=== PATIENT | female | born 1945 | race Caucasian/White ===

== ENCOUNTER 2016-04-24 06:34 | Day surgery (SDC) | payer MEDICARE ==
[~2016-04-24] VITALS: Ht 157.5 cm; Wt 72.4 kg
[2016-04-24] VITALS (9 sets, daily range): BP systolic 127–149; BP diastolic 61–81; PULSE 60–85; RESP 14–19; O2SAT 92–98
[2016-04-24] MEDS: Lactated Ringer's 1,000 ML IV SCH ×4 (05:00→10:45)
[~2016-04-24 06:34] MED LIST: ATRV10T PO; CALC500T53 PO; CHOL10008 PO; CeFAZolin 2 Gm/50 mL D5W IV Premix IV ONE; DOCO1CAP3 PO; LOSA100T29 PO; METO25TA99 PO; VIT1CAPS8 PO; VIT1TABL83 PO
[2016-04-24] MEDS ORDERED: EPHEDrine/NS 5 mg/mL 5 mL Syringe ONE (06:35)
[2016-04-24] MEDS ORDERED: fentaNYL-PF 50 mCg/mL 2 mL Inj ONE (06:35)
[2016-04-24] MEDS ORDERED: HYDROmorphone 2 mg/mL Inj ONE (06:35)
[2016-04-24] MEDS ORDERED: Ondansetron 2 mg/mL 2 mL Inj ONE (06:35)
[2016-04-24] MEDS ORDERED: Propofol 10,000 mCg/mL 20 mL Inj ONE (06:35)
[2016-04-24] MEDS ORDERED: Rocuronium 10 mg/mL 5 mL Inj ONE (06:35)
[2016-04-24] MEDS ORDERED: Dexamethasone 4 mg/mL Inj ONE (06:35)
--- NOTE | 2016-04-24 08:11 | PCM.HPANE ---
Patient Data Surgeon Admitting Provider: Attending Provider:Kim Miller MD Primary Care Physician:Shante Faulkner Other Provider:MaryellenocOlga Anesthesia Reason for Visit GERD Ht/WT & BMI Height (Feet): 5 Height (Inches): 2 Weight (Kilograms): 72.4 Body Mass Index 29.00 Allergies Coded Allergies: amlodipine (Verified Allergy, Severe, 09/19/15) edema hydrochlorothiazide (Verified Adverse Reaction, Severe, 09/19/15) sun sensitivity Past Anesthesia History Anesthesia History: Denies:: Abnormal Airway, Anesthesia Reactions, Difficult Intubation, Fam Anesthesia Reaction, Fam Malignant Hypertherm, Malignant Hyperthermia Diabetes History Hx Diabetes?: No MRSA MRSA: No Medications Hypertension Medication: Yes Home Meds Incl Beta Kimmie: Yes Date Beta Kimmie Taken: Apr 23, 2016 Time Beta Kimmie Taken: 2200 Reported Medications Cholecalciferol (Vitamin D3) (Vitamin D3)1,000 Unit Tab.chew1,000 Unit PO DAILY 04/22/16 Vit C/Vit E/Lutein/Min/[place]-3 (Ocuvite Softgel)1 Each Capsule1 Each PO DAILY 04/22/16 Metoprolol Succinate ER 25 Mg Tab.er.24h25 Mg PO DAILY Ref 0 04/22/16 Losartan Potassium 100 Mg [id number] Mg PO DAILY 04/22/16 Docosahexanoic Acid/Epa (Fish Oil Concentrate Softgel)1 Each Capsule1 Each PO DAILY 04/22/16 Calcium Carbonate 200 Mg Tab.hizc263 Mg PO DAILY 04/22/16 Vit B Comp/C/FA/Iron/Vit E (Vitamin B Complex Tablet)1 Each Tablet1 Each PO DAILY 04/22/16 Atorvastatin (Lipitor)10 Mg Tab10 Mg PO DAILY Ref 0 04/22/16 Discontinued Reported Medications Cholecalciferol (Vitamin D3) (Vitamin D3)1,000 Unit Tab.chew1,000 Unit PO 09/19/15 Spironolactone 25 Mg Atkoba48 Mg PO DAILY #30 TABLET Ref 0 09/19/15 Metoprolol Succinate ER 25 Mg Tab.er.24h25 Mg PO DAILY Ref 0 09/19/15 Losartan Potassium 100 Mg Fjojjk475 Mg PO DAILY 09/19/15 Vitamin B Complex & Vit C No.3 (B Complex with Vitamin C)1 Each Capsule1 Each PO DAILY 09/19/15 Atorvastatin (Lipitor)10 Mg Tab10 Mg PO DAILY Ref 0 09/19/15 History History of ENT Problems?: Yes HEENT History: Positive for:: Dysphagia (occasional ) Denies:: Abnormal Airway Cataracts (forming- not yet surgically corrected) Difficult Intubation Glaucoma Hearing Problem Sinus Problem TMJ Hx of Heart Problems?: Yes Cardiovascular History: Positive for:: Abdominal Aortic Aneurism (enlarged ascending aorta/ mild- cardio note 12/2015) Hypertension Denies:: AICD Chest Pain Congestive Heart Failure Coronary Artery Disease Edema Heart Murmur Irregular Heartbeat Pacemaker Peripheral Vascular Rheumatic Fever Thrombophlebitis Valvular Heart Disease (echo 08/2015 ) Hx of Respiratory Problem?: No Respiratory History: Denies:: Asthma COPD Emphysema Oxygen Administration Pneumonia Pulmonary Embolism Tuberculosis Use of C-PAP Machine Use of Inhalers / NEBS Hx Neurologic Problems?: No Neurological History: Denies:: CVA Dementia Dizziness Headaches Multiple Sclerosis Parkinson's Disease Seizures TIA Hx of GI Problems?: Yes Gastrointestinal History: Positive for:: Gastroesphageal Reflux (gaviscon OTC frequently) Heartburn Hiatal Hernia (current admission problem) Denies:: Gall Bladder Disease Gastrointestinal Bleeding Hx of Problems?: No Genitourinary History: Denies:: Kidney Stones Urinary Tract Infection Female Hx: Denies:: Currently Problems with Breasts? Skin History: Denies:: History Skin Disorders? Pressure Ulcers Hx Musculoskeletal Problems?: No Musculoskeletal History: Denies:: Back Injury Degenerative Joint Fibromyalgia Joint Replacement Musculoskeletal Trauma Myasthenia Gravis Osteoarthritis Rheumatoid Arthritis Systemic Lupus Hx of Psycho/Social Problems?: No Psycho Social History: Denies:: Anxiety Hx Depression Hx Surgeries?: Yes (BTL, T&A, LASIK) Hx Any Other Health Problems?: Yes Other History: Denies:: Cancer Thyroid Disease Hx Diabetes: No Hx Alcohol Use: YesAlcoholic Drinks Per Day: 2-3 x week, not recently Smoking Status: Never Smoker Have You Smoked inLast 12 mo: No Stop/Bang S-Snoring: Do You Snore Loudly: No T-Tired: feel tired, fatigued: No O-Obsered: Observed not breath: No P-Blood Pressure: treated: Yes B- Body Mass Index > 35 kg/m2: No A- Age over 50: Yes N- Neck Large Circumference: No G- Gender Male: No JAKE Total Score: 2 JAKE Risk Assessment: Low Risk, <3 Yes Risk Assessment Category Category 1A: Patient has history of documented sleep apnea, and HAS NOT received any narcotic, sedative or anesthesia administration during this stay. Category 1B: Patient has history of documented sleep apnea, and HAS received any narcotic , sedative or anesthesia administration during this stay Category 2: Patient has SUSPECTED Obstructive Sleep Apnea, and HAS received any narcotic , sedative or anesthesia administration during this stay. Category 3: Patient has SUSPECTED Obstructive Sleep Apnea and HAS NOT received narcotic, sedative or anesthesia administration during this stay. Category 4: Outpatient in Procedural Areas with known sleep apnea or who screen positive for High Risk via the STOP/BANG questionnaire. Exam Exam Vital Signs Vital Signs Date Time Temp Pulse Resp B/P Pulse Ox O2 Delivery O2 Flow Rate FiO2 04/24/16 07:23 36.5 60 16 149/76 93 Room Air General Appearance: Alert, Oriented X3, Cooperative, No Acute Distress HEENT/AIRWAY: MP 2 Lungs: Clear to Auscultation, Normal Air Movement Heart: Exam Unremarkable, Regular Rate/Rhythm, No Murmurs/Rubs/Gallops Meds/Labs/Diagnostics Admission Meds Current Medications Lactated Ringer's (Lr) 1,000 ml @ 120 mls/hr Q8H20M IV Last administered on t 07:40; Start 04/24/16 at 05:00; Stop 04/24/16 at 13:19 Plan Impression Patient chart reviewed, patient interviewed and anesthestic plan with risks, benefits, and alternatives discussed, and informed consent obtained. NPO Status: mn ASA Physical Status: ASA2 Mod Systemic Disease Anesthetic Plan: GA Bene/Risks/Altern/Consents: Yes HP Complete Prior to Induction: Yes Deniz Huston MD Apr 24, 2016 08:11
[2016-04-24] MEDS ORDERED: Lactated Ringer's 500 ML IV PRN (09:19)
[2016-04-24] MEDS ORDERED: Lactated Ringer's 1,000 ML IV SCH (09:19)
[2016-04-24] MEDS ORDERED: HYDROmorphone 1 mg/mL Inj IVPUSH PRN ×2 (09:20→11:50)
[2016-04-24] MEDS ORDERED: MetoCLOpramide 5 mg/mL 2 mL Inj IVPUSH PRN ×2 (09:20→11:50)
[2016-04-24] MEDS ORDERED: fentaNYL-PF 50 mCg/mL 2 mL Inj IVPUSH PRN (09:20)
[2016-04-24] MEDS ORDERED: EPHEDrine Sulfate 50 mg/mL Inj IVPUSH PRN (09:20)
[2016-04-24] MEDS ORDERED: Ondansetron 2 mg/mL 2 mL Inj IVPUSH PRN ×2 (09:20→11:50)
[2016-04-24] MEDS ORDERED: Atropine 0.4 mg/mL Inj IVPUSH PRN (09:20)
[2016-04-24] MEDS ORDERED: Dexamethasone 4 mg/mL Inj IVPUSH PRN (09:20)
[2016-04-24] MEDS ORDERED: Labetalol 5 mg/mL 4 mL Inj IV PRN (09:20)
[2016-04-24] MEDS ORDERED: hydrALAZINE 20 mg/mL Inj IVPUSH PRN (09:20)
[2016-04-24] MEDS ORDERED: Phenylephrine 10,000 mCg/mL Inj IVPUSH PRN (09:20)
[2016-04-24] MEDS ORDERED: Bupivacaine-MPF 0.5% W/EPI 30 mL Inj INFILTRATE ONE (09:34)
[2016-04-24] MEDS ORDERED: Acetaminophen 32.5 mg/mL 20 mL Liquid PO PRN (11:55)
--- NOTE | 2016-04-24 12:03 | PCM.SURGOP ---
Surgical Operative Report Date of Service: Apr 24, 2016 Pre Operative Diagnosis Hiatal hernia and pathologic reflux Post Operative Diagnosis Hiatal hernia and pathologic reflux Procedure: Laparoscopic hiatal hernia repair with Toupet fundoplication Surgeon and Hand Former: Surgeon: Kim Miller M.D. Assistants: Makenzie Oneill M.D.; Quoc Singh PA-C; Sarah Arellano, MS3 A surgical device sales representative was necessary for retraction and dissection and intraoperative decision-making. Indication for Procedure This is a 71-year-old woman with symptoms of reflux including acid brash, cough , dysphagia, and odynophagia. These were somewhat improved on PPI, but not entirely. She underwent a complete workup and was found to have a DeMeester score of 87, ineffective esophageal motility on esophageal manometry, a moderate hiatal hernia and severe distal esophagitis. Based on all of these findings and her symptoms, laparoscopic hiatal hernia repair was indicated. Findings: 1. Moderate sliding hiatal hernia. 2. 270 partial posterior fundoplication. Procedure Details The patient was brought to the operating room and placed in supine position. General endotracheal anesthesia was smoothly induced. A warming blanket and SCDs were placed. The patient was repositioned into low lithotomy with the left arm tucked. Antibiotics were infused. The operative field was prepped and draped in sterile fashion. A pause was performed to confirm the correct patient, procedure, and site. The abdomen was accessed using a Veress needle in the left upper quadrant after controlling the fascia and was insufflated. An 11 mm Optiview port was inserted and intraperitoneal insufflation began. An 11 mm port was then placed in the mid abdomen just to the left of midline. The 5 mm port was placed in the mid abdomen laterally on the left. A 5 mm flexible liver retractor was placed through a 5 mm port in the right lateral abdomen. A final 5mm trocar was placed in the right upper quadrant. A moderate sliding hiatal hernia was visualized. The stomach was identified and the phrenogastric ligament was taken down sharply. The short gastrics were then taken down using LigaSure device. Dissection proceeded at the hiatus starting on the left. The mediastinum was entered on the left, and the stomach and esophagus were dissected from anterior to posterior in order to fully reduce the hiatal hernia on that side.. The gastrohepatic ligament was then divided up to the right hira and the right sided dissection was completed with care taken to preserve the entire hira and posterior vagus. Once the esophagus was dissected circumferentially, a Moffit drain was then placed around the esophagus at the gastroesophageal junction for retraction to facilitate a more proximal esophageal dissection. This proceeded proximally until there was 5 cm of intra- abdominal esophagus. Attention was turned to the crural closure. 4 interrupted 2-0 silk stitches were placed in the posterior crura. These were flexible and came together easily. A marking stitch was placed on the posterior fundus, 3 cm distal to the gastroesophageal junction and 2 cm posterior to the greater curvature. This was brought around posteriorly to align the geometry of the fundoplication. The first stitch was placed in the fundus just proximal to the marking stitch, to the esophagus at and 11 o'clock position, and to the right hira at the 11 o'clock position. The Moffit drain and marking stitch were removed. The second stitch was placed from the posterior aspect of the right fundoplication to the bilateral crura posteriorly. Two additional stitches were then placed from the right side of the fundoplication to an 11 o'clock position on the esophagus . Care was taken to avoid inclusion of the anterior vagus in the stitches. Attention was then turned to the left side of the wrap. An appropriate position on the fundus was chosen to create symmetrical geometry of the fundoplication. The first stitch on the left was placed from the wrap to the esophagus to the hira, again with care taken to avoid inclusion of the anterior vagus in the stitch. Two additional sutures were then placed from the wrap to the esophagus, each 1 cm distal to the previous one. A final stitch was placed at the 4 o'clock position from the left hira to the wrap. Once the procedure was complete, the 11 mm port site in the left mid abdomen was closed with an interrupted 0 PDS using a fascial closure device. The remaining ports were removed under direct vision and the abdomen was desufflated. 0.5% Marcaine with epinephrine was infused at all port sites. Skin was closed with 4-0 Monocryl. Sterile dressings were placed. The patient was awakened from general anesthesia and taken to the postoperative care unit in good condition. Complications There were no periprocedural complications identified. Surgical Specimen Removed: No Specimen sent to Pathology: No Anesthetic Plan: GA Grafts, Implants: None Output, Estimated Blood Loss: 5 (ml) Blood Administration during tate: No Kim Miller MD Apr 24, 2016 12:03
[2016-04-24 12:16] LABS: BASOPHILS % (AUTO) 0.2 % (0-3); EOSINOPHILS % (AUTO) 0.4 % (0-5); MONOCYTES % (AUTO) 3.7 % (4-12); Mean Corpuscular Hemoglobin 30.6 pg (27.0-35.0); NEUTROPHILS % (AUTO) 83.8 % (40-74); Platelet Count 250 bil/L (150-400)
[2016-04-24] MEDS: Dextrose 5% Lactated Ringer's 1,000 ML IV SCH ×2 (12:36→23:57)
--- NOTE | 2016-04-24 12:44 | NUR ---
Postop: Pt to floor at approx 1230 from pacu. Pt alert, able to answer questions, but sleepy. 5 bandaids to abdomen. No drainage. Scd's to be placed. No pain or nausea noted. Clear liquid diet ordered.
[2016-04-24 12:50] LABS: APPEARANCE,URINE HAZY (CLEAR,HAZY); COLOR,URINE STRAW (YELLOW); OCCULT BLOOD,URINE NEGATIVE (NEGATIVE); PH,URINE 7.5 (5.0-8.0); UROBILINOGEN,URINE NORMAL (NORMAL)
--- NOTE | 2016-04-24 13:43 | PCM.ANEP1 ---
Post Anesthesia Phase 1 PACU Phase 1 Assessment Date of Service: Apr 24, 2016 Vital Signs Vital Signs Date Time Temp Pulse Resp B/P Pulse Ox O2 Delivery O2 Flow Rate FiO2 04/24/16 13:00 36.4 63 16 149/81 94 Room Air 04/24/16 12:15 36.3 68 14 134/70 93 Room Air 04/24/16 12:00 64 16 134/69 95 Room Air 04/24/16 11:55 72 17 137/61 98 Simple Mask 9 04/24/16 11:50 79 19 136/63 97 Simple Mask 9 04/24/16 11:48 36.2 79 19 140/72 97 Simple Mask 9 04/24/16 07:23 36.5 60 16 149/76 93 Room Air Anesthetic Administered: GA Level of Alertness: Awake, talking DODSON's with Equal Strength: Yes Pain: No Nausea or Vomiting: No Oxygen Delivery: Room Air Lungs: Clear to Auscultation, Normal Air Movement Dermatome Level: Full Sensation Deniz Huston MD Apr 24, 2016 13:43
--- NOTE | 2016-04-24 14:01 | PCM.ANEP2 ---
Post Anesthesia Evaluation ASA/CMS Post Anesthesia VS in Patient's Normal Range?: Yes Resp Stable; Airway Patent?: Yes CV Function & Hydration Stable: Yes Mental Status Recovered?: Yes Pain control Satisfactory?: Yes N/V Control Satisfactory?: Yes Deniz Huston MD Apr 24, 2016 14:01
[2016-04-24] MEDS: oxyCODONE 1 mg/mL 5 mL Liquid PO PRN ×3 (15:45→21:01)
[2016-04-24] MEDS ORDERED: Polyethylene Glycol (PEG) 17 Gm Powder ONE (15:47)
[2016-04-24] MEDS: Heparin 5,000 Unit/mL Inj SUBQ SCH (16:59)
--- NOTE | 2016-04-25 00:23 | NUR ---
pain control patient anxious about pain medication schedule at the start of the shift. schedule of pain medication times written on white board patient relays that the left shoulder discomfort has signifigantly improved. plan to cont. pain medication as needed. plan discussed with sister bulmaro. verbalized understanding.
[2016-04-25] MEDS: Heparin 5,000 Unit/mL Inj SUBQ SCH ×2 (00:56→07:56)
[2016-04-25] MEDS: oxyCODONE 1 mg/mL 5 mL Liquid PO PRN ×4 (00:57→13:16)
[2016-04-25 01:28] VITALS: BP 122/75; PULSE 79; RESP 18; O2SAT 93
[2016-04-25 05:25] VITALS: BP 127/71; PULSE 70; RESP 18; O2SAT 92
[2016-04-25 06:47] LABS: BASOPHILS % (AUTO) 0.1 % (0-3); EOSINOPHILS % (AUTO) 0.3 % (0-5); MONOCYTES % (AUTO) 12.3 % (4-12); Mean Corpuscular Hemoglobin 30.4 pg (27.0-35.0); NEUTROPHILS % (AUTO) 76.6 % (40-74); Platelet Count 242 bil/L (150-400)
[2016-04-25] MEDS ORDERED: Polyethylene Glycol (PEG) 17 Gm Powder PO SCH (08:30)
--- NOTE | 2016-04-25 08:40 | PCM.PNSURG ---
Subjective Visit Information: Reason for Visit GERD Surgery/Surgery Date HIATAL HERNIA REPAIR 04/24/16 Post-Op Day # Date of Admission: Hospital Day # Subjective: PO >900. One episode of retching. Nausea controlled with zofran at the time, no additional nausea. Benton has been discontinued, pending urination. Objective Vital Sign- Last 8 Hours Date Time Temp Pulse Resp B/P Pulse Ox O2 Delivery O2 Flow Rate FiO2 04/25/16 05:25 37.1 70 18 127/71 92 Room Air 04/25/16 01:28 36.7 79 18 122/75 93 Room Air Intake and Output- Last 8 Hour 04/25/16 Cumulative From/Thru 07:00 04/22/16 10:19 - 04/25/16 06:12 Intake Total 1772 ml 4042 ml Output Total 2000 ml 2660 ml Balance -228 ml 1382 ml Intake Oral 450 ml 970 ml IV Total 1322 ml 3072 ml Output Urine Total 2000 ml 2650 ml Estimated Blood Loss 10 ml General: Alert, Oriented X3, Cooperative, No Acute Distress Abdomen: Soft, Appropriately tender, Non-distended, Other (dressings c/d/i) Result Diagram: 04/25/16 0615 04/25/16 0615 Assessment & Plan Impression 71yof POD1 lap Toupet/hiatal hernia repair Problems: Plan UGI full liquid diet oral analgesia needs to urinate nutrition consult discharge in afternoon if tolerating FLD and pain controlled on oral meds without abnormality on UGI Kim Miller MD Apr 25, 2016 08:40
--- NOTE | 2016-04-25 08:41 | PCM.DISURG ---
Surgical Discharge Instruction Date of Service Apr 25, 2016 Dates of Hospitalization Date of Hospital Admission Providers Admitting Physician: Primary Care Physician: Shante Faulkner Attending Physician: Kim Miller MD Discharge Diagnosis Discharge Diagnosis Hiatal hernia and pathologic reflux Post Operative diagnosis Hiatal hernia and pathologic reflux Diet Discharge Diet: Other (Liquid/puree) Activity Discharge Activity-General: No lifting >15 pounds for 2 weeks Dressing and Incisional Care Dressing Care: Allow Steri Stripes to fall off, Remove outer dressing after 24 hrs Hygiene: May shower Follow Up Plan Follow Up Plan F/U with Dr. Miller in 2 weeks Call your provider for: Fever, Chills, Shortness of breath, Increasing abdominal pain, Nausea, Wound redness, Discharge @ incision, pus discharge Kim Miller MD Apr 25, 2016 08:41
[2016-04-25] MEDS ORDERED: ONDA4TAB9 PO (08:43)
[2016-04-25] MEDS ORDERED: OXYC5SOL11 PO (08:43)
[2016-04-25] MEDS ORDERED: ACET650S24 PO (08:43)
--- NOTE | 2016-04-25 08:44 | PCM.DISURG ---
Surgical Discharge Instruction Date of Service Apr 25, 2016 Dates of Hospitalization Date of Hospital Admission Providers Admitting Physician: Primary Care Physician: Shante Faulkner Attending Physician: Kim Miller MD Discharge Diagnosis Post Operative diagnosis Hiatal hernia and pathologic reflux Activity Discharge Activity-General: No lifting >15 pounds for 2 weeks Additional Instructions Discharge Instructions Crush all meds except metoprolol. Follow Up Plan Follow Up Plan F/U with Dr. Miller in 2 weeks Call your provider for: Fever, Chills, Shortness of breath, Increasing abdominal pain, Nausea, Wound redness, Discharge @ incision, pus discharge Kim Miller MD Apr 25, 2016 08:44
--- NOTE | 2016-04-25 10:27 | NUR ---
RD Education: RD diet education re: pureed/liquid diet completed. Please see RD: Dietary Teaching Record under Care Activity for further information regarding education
--- NOTE | 2016-04-25 11:32 | DRSVH ---
PROCEDURE: X-RAY GASTROGRAPHIN STUDY OF ESOPHAGUS/PHARYNX ([id number]) INDICATIONS: routine post-Toupet fundoplication pod1 COMPARISON: None. FINDINGS: Function: There is normal esophageal peristalsis. Morphology: Single contrast view demonstrates no esophageal strictures, extrinsic mass effect, or div erticula. No findings to suggest extravasation of contrast. IMPRESSION: Unremarkable single contrast esophagram after fundoplication procedure. Dictated by: Subha Arcos M.D. on 04/25/2016 at 11:29 Approved by: Subha Arcos M.D. on 04/25/2016 at 11:29
[2016-04-25 12:04] VITALS: BP 130/77; PULSE 65; RESP 16; O2SAT 93
--- NOTE | 2016-04-25 14:40 | NUR ---
Discharge Orders for discharge were received. The patient was made aware of and was agreeable to the plan. The patient was given her scripts and information regarding her medications, diagnosis and treatment, signs and symptoms to be aware of, follow up instructions and surgical site care. The patient signified understanding of this information and her asymptomatic IV was removed intact. The patient was then dressed in her own clothing and her belongings gathered. The patient then ambulated to the main entrance where she entered a private vehicle. At the time of discharge the patient was alert and oriented, with no complaints of out of control pain, nausea or other difficulties, with surgical sites intact.
--- NOTE | 2016-04-25 15:07 | PCM.DC.SUR ---
Discharge Summary Date of Service: Date of Hospital Admission: 04/24/2016 Date of Operation(s): 04/24/2016 Date of Discharge: Apr 25, 2016 at 13:48 Diagnosis at Time of Discharge Primary diagnosis: Hiatal hernia with pathologic reflux Other diagnoses: 1. Osteoporosis 2. Hyperglycemia 3. Hyperlipidemia 4. Benign essential hypertension 5. GERD Problems: Operation Laparoscopic hiatal hernia repair with Toupet fundoplication Brief History and Physical: This is a 71-year-old woman with symptoms of reflux including acid brash, cough , dysphagia, and odynophagia. These were somewhat improved on PPI, but not entirely. She underwent a complete workup and was found to have a DeMeester score of 87, ineffective esophageal motility on esophageal manometry, a moderate hiatal hernia and severe distal esophagitis. Based on all of these findings and her symptoms, laparoscopic hiatal hernia repair was indicated. Consultants: None Hospital Course: The patient was admitted and underwent the above-mentioned operation without complication. The following day upper GI did not demonstrate extravasation. The patient was able to void after Benton catheter was removed. She tolerated pain on oral analgesic and received nutrition/diet education from the hospital dietitian prior to discharge. She was stable for discharge on her first postsurgical day. Pathology: None Disposition: The patient was discharged home on her first postsurgical day. Follow-up Plan: She will follow-up in the office with Dr. Miller in 2 weeks. Acetaminophen (Acetaminophen Liquid) 650 Mg/20 Ml Liquid 650 MG PO Q6H PRN PRN For Mild Pain or Fever Atorvastatin (Lipitor) 10 Mg Tab 10 MG PO DAILY (Reported) Losartan Potassium (Losartan Potassium) 100 Mg Tablet 100 MG PO DAILY (Reported ) Metoprolol Succinate ER (Metoprolol Succinate ER) 25 Mg Tab.er.24h 25 MG PO DAILY (Reported) Ondansetron ODT (Zofran ODT) 4 Mg Tablet 4 MG PO Q4H PRN PRN For Nausea oxyCODONE (oxyCODONE) 5 Mg/5 Ml Solution 5-10 MG PO Q4H PRN PRN For Severe Pain copies to: Shante Faulkner Fred H PA-C Apr 25, 2016 15:07
== END 2016-04-25 13:48 | disposition home or self-care (01) ==
LOC: SAS 06:34 → OSC 12:32 → SAS 04-25 13:48
PROVIDERS: ATTEND Surgery
DX: K21.9 Gastro-esophageal reflux disease without esophagitis (principal); I10 Essential (primary) hypertension; E78.5 Hyperlipidemia, unspecified; M81.0 Age-related osteoporosis without current pathological fracture; I77.89 Other specified disorders of arteries and arterioles; Z82.79 Family history of other congenital malformations, deformations and chromosomal abnormalities
CPT/HCPCS: 36415; 43280; 74220; 80048; 81000; 85025; J0690; J1100; J1170; J1644; J2250; J2405; J7120; Q9963